=== PATIENT | male | born 1995 | race Caucasian/White ===

== ENCOUNTER 2016-10-08 12:14 | Emergency (ER) | payer SELFPAY ==
[~2016-10-08] VITALS: Ht 170.2 cm; Wt 71.9 kg
[2016-10-08 14:01] LABS: BASOPHIL % 0.3 % (0-2); PLATELET COUNT 184 x10^3mcL (130-400); RED CELL DISTRIBUTION WIDTH 13.9 % (11.5-14.5)
[2016-10-08 14:03] LABS: UA SPECIFIC GRAVITY 1.025 (1.005-1.035); microscopic required? YES; urine erythrocyte NEGATIVE (NEGATIVE)
[2016-10-08 14:09] LABS: CALCIUM 8.5 mg/dL (8.5-10.1); CARBON DIOXIDE 31.7 mmol/L (21-32); CHLORIDE SERUM 99 mmol/L (98-107); CREATININE SERUM 1.1 mg/dL (0.7-1.3); GFR1 > 60 mL/min; GLUCOSE SERUM 91 mg/dL (74-106); POTASSIUM SERUM 3.9 mmol/L (3.5-5.1); SODIUM SERUM 134 mmol/L (136-145)
[2016-10-08 14:15] LABS: ALKALINE PHOSPHATASE 92 U/L (46-116); ALT/SGPT 21 U/L (16-63); AST/SGOT 15 U/L (15-37); BILIRUBIN TOTAL 0.5 mg/dL (0.20-1.00); HDL CHOLESTEROL 53 mg/dL (40-60); LIPASE 79 IU/L (73-393); TOTAL PROTEIN, SERUM 7.2 g/dL (6.4-8.2); TRIGLYCERIDES 37 mg/dL (<150)
[2016-10-08 14:16] LABS: ALBUMIN 3.3 g/dL (3.4-5.0); CHOLESTEROL 72 mg/dL (<200); CHOLESTEROL/HDL RATIO 1.4
[2016-10-08 14:25] LABS: AMPHETAMINE QUAL UR POSITIVE (NEG <=1000)
[2016-10-08 14:36] LABS: FREE T4 0.72 ng/dL (0.76-1.46)
[2016-10-08 14:37] LABS: FREE THYROXINE INDEX 1.3 ug/dL (1.4-4.5); T4(THYROXINE) 3.8 ug/dL (4.7-13.3)
[2016-10-08 14:39] LABS: T3 TOTAL 0.71 ng/mL
[2016-10-08 15:13] VITALS: BP 120/85
== END 2016-10-08 15:14 | disposition home or self-care (01) ==
LOC: ED 12:14
PROVIDERS: Specialist
DX: R07.9 Chest pain, unspecified (principal)
CPT/HCPCS: 83880; 84439; J1885; J7030; Q0092

== ENCOUNTER → 2016-11-08 | Emergency (ER) | payer OTHER | END | disposition home or self-care (01) | LOC: ED 14:58 | DX: Z01.89 Encounter for other specified special examinations (principal) ==

== ENCOUNTER 2017-04-10 08:00 | Emergency (ER) | payer MEDICAID ==
[~2017-04-10] VITALS: Ht 172.7 cm; Wt 73.9 kg
[2017-04-10 09:22] LABS: microscopic required? YES; urine erythrocyte 3+ (NEGATIVE)
[2017-04-10 09:55] VITALS: BP 100/60
== END 2017-04-10 09:55 | disposition home or self-care (01) ==
LOC: ED 08:00
PROVIDERS: Emergency Medicine
DX: N39.0 Urinary tract infection, site not specified (principal); R31.9 Hematuria, unspecified; J45.909 Unspecified asthma, uncomplicated; F17.210 Nicotine dependence, cigarettes, uncomplicated; F12.10 Cannabis abuse, uncomplicated
CPT/HCPCS: 87491; 87591; J0696

== ENCOUNTER 2017-10-09 21:50 | Emergency (ER) | payer MEDICAID ==
[~2017-10-09] VITALS: Ht 170.2 cm; Wt 74.8 kg
[2017-10-09 21:55] VITALS: Ht 170.2 cm; Wt 74.8 kg
[2017-10-10 00:02] VITALS: BP 121/80
== END 2017-10-10 00:02 | disposition home or self-care (01) ==
LOC: ED 21:50
DX: S80.11XA Contusion of right lower leg, initial encounter (principal); J45.909 Unspecified asthma, uncomplicated; X08.8XXA Exposure to other specified smoke, fire and flames, initial encounter; Y93.89 Activity, other specified; Y92.89 Other specified places as the place of occurrence of the external cause; Y99.8 Other external cause status
CPT/HCPCS: J1885

== ENCOUNTER 2018-04-12 06:40 | Emergency (ER) | payer MEDICAID ==
[~2018-04-12] VITALS: Ht 172.7 cm; Wt 76.9 kg
[2018-04-12 07:11] VITALS: BP 121/69
== END 2018-04-12 07:11 | disposition home or self-care (01) ==
LOC: ED 06:40
DX: S02.5XXA Fracture of tooth (traumatic), initial encounter for closed fracture (principal); K04.7 Periapical abscess without sinus; J45.909 Unspecified asthma, uncomplicated; X58.XXXA Exposure to other specified factors, initial encounter; Y93.89 Activity, other specified; Y92.89 Other specified places as the place of occurrence of the external cause; Y99.8 Other external cause status

== ENCOUNTER 2018-07-16 19:23 | Emergency (ER) | payer MEDICAID ==
[~2018-07-16] VITALS: Ht 170.2 cm; Wt 75.3 kg
[2018-07-16 19:29] VITALS: BP 127/84; Ht 170.2 cm; Wt 75.3 kg
== END 2018-07-16 21:15 | disposition home or self-care (01) ==
LOC: ED 19:23
DX: S30.0XXA Contusion of lower back and pelvis, initial encounter (principal); V19.9XXA Pedal cyclist (driver) (passenger) injured in unspecified traffic accident, initial encounter; Y93.I9 Activity, other involving external motion; Y92.413 State road as the place of occurrence of the external cause; Y99.8 Other external cause status

== ENCOUNTER 2019-06-11 01:50 | Emergency (ER) | payer SELFPAY ==
[~2019-06-11] VITALS: Ht 170.2 cm; Wt 76.4 kg
[2019-06-11 02:03] VITALS: Ht 170.2 cm; Wt 76.4 kg
[2019-06-11 06:21] VITALS: BP 123/53
== END 2019-06-11 06:21 | disposition home or self-care (01) ==
LOC: ED 01:50
DX: S02.609A Fracture of mandible, unspecified, initial encounter for closed fracture (principal); S06.9X9A Unspecified intracranial injury with loss of consciousness of unspecified duration, initial encounter; S62.92XA Unspecified fracture of left hand, initial encounter for closed fracture; S09.8XXA Other specified injuries of head, initial encounter; F17.210 Nicotine dependence, cigarettes, uncomplicated; W05.2XXA Fall from non-moving motorized mobility scooter, initial encounter; Y93.I9 Activity, other involving external motion; Y92.413 State road as the place of occurrence of the external cause; Y99.8 Other external cause status
CPT/HCPCS: J2001; J2270; J2405; Q0092